=== PATIENT | male | born 1970 | race Asian ===

== ENCOUNTER 2021-07-08 04:48 | Day surgery (SDC) | payer OTHER ==
[2021-07-08 08:17] VITALS: BMI 34.7
[2021-07-08] MEDS ORDERED: PROPOFOL 20 ML ONE ×2 (09:04)
[2021-07-08] MEDS ORDERED: FENTANYL CITRATE/PF 50 MCG/ML VIAL ONE ×2 (09:04)
[2021-07-08] MEDS ORDERED: LIDOCAINE HCL/PF 2% SDV 5ML VIAL ONE (09:04)
[2021-07-08] MEDS ORDERED: MIDAZOLAM HCL 2 MG/2 ML SINGLE DOSE VIAL ONE (09:04)
[2021-07-08] MEDS ORDERED: ceFAZolin SODIUM 1 GM VIAL ONE (09:30)
[2021-07-08] MEDS ORDERED: ceFAZolin SODIUM 1 GM VIAL IVPB ONE (09:31)
[2021-07-08] MEDS ORDERED: KETOROLAC TROMETHAMINE 30 MG/1 ML VIAL ONE (09:43)
[2021-07-08 11:00] VITALS: BP 134/86; PULSE 63; TEMP 97.8
== END 2021-07-08 11:15 | disposition home or self-care (01) ==
LOC: JASU-SURG 04:48
PROVIDERS: ATTEND Urology
PROC: 0TF3XZZ Fragmentation in Right Kidney Pelvis, External Approach (ICD-10-PCS; principal; 2021-07-08 09:00)
DX: N20.0 Calculus of kidney (principal)